=== PATIENT | male | born 1990 | race Caucasian/White ===

== ENCOUNTER 2018-02-22 00:22 | Emergency (ER) | payer BC, OTHER ==
[2018-02-22] MEDS: CEPHALEXIN 500 MG CAP PO (01:53)
[2018-02-22] MEDS: TRIMETHOPRIM/SULFAMETHOX (DS) TAB PO (01:53)
[2018-02-22] MEDS: MUPIROCIN 2% 22 GM OINT TOP (01:56)
== END 2018-02-22 02:33 | disposition home or self-care (01) ==
LOC: FTE 00:22
DX: L02.01 Cutaneous abscess of face (principal)
CPT/HCPCS: 99284

== ENCOUNTER 2018-04-10 08:45 | Emergency (ER) | payer BC | END 2018-04-10 09:17 | disposition home or self-care (01) | LOC: FTE 08:45 | DX: J34.0 Abscess, furuncle and carbuncle of nose (principal); R40.2412 Glasgow coma scale score 13-15, at arrival to emergency department | CPT/HCPCS: 99283 ==